=== PATIENT | female | born 1960 | race Caucasian/White ===

== ENCOUNTER 2017-06-01 21:38 | Emergency (ER) | payer OTHER ==
[2017-06-01 21:49] VITALS: BP 98/59
--- NOTE | 2017-06-01 22:21 | RAD ---
INDICATION: "Jammed" right middle finger 2 days ago. The patient now has pain in the distal phalanx. TECHNIQUE: 3 views of the right middle finger were obtained. FINDINGS: The bones are normal alignment. Joint spaces appear maintained. No fracture is seen. IMPRESSION: NO EVIDENCE FOR FRACTURE, IF THE PATIENT'S SYMPTOMS PERSIST RECOMMEND FOLLOW-UP IMAGING.
--- NOTE | 2017-06-01 22:29 | UC ---
Lidia Edwards Alfonso, scribed for Adria Dover MD on 06/01/17 at 2215 . Head Injury HPI - HPI Summary HPI Summary: This patient is a 56 year old MF presenting to [facility] with a chief complaint of right middle finger injury which occurred 2 days ago. Pt reports she jammed the finger horseback riding. The CC is described as an ache. Pt rates the pain 3/10 in severity. Symptoms aggravated and alleviated by nothing. Pt already applied a splint to the finger. Pt medications reviewed this visit. - History Of Current Complaint Chief Complaint: UCUpperExtremity Stated Complaint: FINGER INJURY Time Seen by Provider: 06/01/17 21:58 Hx Obtained From: Patient Mechanism Of Injury: Right middle finger Onset/Duration: Sudden Onset, Lasting Days - 2, Still Present Severity Currently: Mild Severity Initially: Mild Pain Intensity: 3 Pain Scale Used: 0-10 Numeric Character: Other - Ache Aggravating Factor(s): Nothing Alleviating Factor(s): Nothing - Allergies/Home Medications Allergies/Adverse Reactions: Allergies Allergy/AdvReac Type Severity Reaction Status Date / Time Sulfa Drugs Allergy Vomiting Verified 06/01/17 21:49 Home Medications: Home Medications NK [No Home Medications Reported] 06/01/17 [History Confirmed 06/01/17] PMH/Surg Hx/FS Hx/Imm Hx - Surgical History Surgical History: Yes Surgery Procedure, Year, and Place: . vein stripping - Family History Known Family History: Positive: Cardiac Disease - father in 50s - Social History Alcohol Use: Weekly Alcohol Amount: A couple times weekly Substance Use Type: None Smoking Status (MU): Never Smoked Tobacco Have You Smoked in the Last Year: No Review of Systems Constitutional: Other - Negative fever Musculoskeletal: Other: - Positive right middle finger pain and injury All Other Systems Reviewed And Are Negative: Yes Physical Exam Triage Information Reviewed: Yes Appearance: Well-Appearing, No Pain Distress Vital Signs: Initial Vital Signs Temp 98.7 F 06/01/17 21:45 Pulse 53 06/01/17 21:45 Resp 16 06/01/17 21:45 BP 98/59 06/01/17 21:45 Pulse Ox 100 06/01/17 21:45 Vital Signs Reviewed: Yes Eyes: Positive: Other: - EOMI and STEVEN ENT: Positive: Normal ENT inspection Neck: Positive: Supple, Nontender Respiratory: Positive: Chest non-tender, Normal breath sounds Cardiovascular: Positive: RRR Abdomen Description: Positive: Nontender, Soft Bowel Sounds: Positive: Present Musculoskeletal: Positive: Strength Intact, ROM Intact Neurological: Positive: Alert Psychological: Positive: Age Appropriate Behavior Skin: Positive: Other - Ecchymosis at the right PIP. Procedures - Splinting Location: Right middle figner Pre-Made Type: alumafoam Splint: Middle finger by MD Diagnostics - Radiology Finger X-Ray Radiology Interpretation Completed By: Radiologist - NO EVIDENCE FOR FRACTURE, IF THE PATIENT'S SYMPTOMS PERSIST RECOMMEND FOLLOW-UP IMAGING. Head Injury Course/Dx - Course Course Of Treatment: X-RAY RESULTS DISCUSSED WITH PATIENT. ALUMAFOAM SLPINT PLACED. - Differential Dx/Diagnosis Provider Diagnoses: RT MIDDLE FINGER JAM INJURY Discharge - Discharge Plan Condition: Stable Disposition: HOME Patient Education Materials: Jammed Finger (ED) Referrals: Quintin Bustos MD [Primary Care Provider] - Additional Instructions: FOLLOW UP WITH ORTHOPEDICS IF THE FINGER IS NOT COMPLETELY IMPROVED. RETURN TO THE EMERGENCY DEPARTMENT FOR ANY WORSENING OF YOUR CONDITION OR QUESTIONS OR CONCERNS. The documentation as recorded by the Lidia hoang Alfonso accurately reflects the service I personally performed and the decisions made by me, Adria Dover MD.
== END 2017-06-01 22:31 | disposition home or self-care (01) ==
LOC: UCEAST 21:38
DX: S69.91XA Unspecified injury of right wrist, hand and finger(s), initial encounter (principal); W22.8XXA Striking against or struck by other objects, initial encounter; Y93.52 Activity, horseback riding; Y92.9 Unspecified place or not applicable; Y99.9 Unspecified external cause status
CPT/HCPCS: 73140; 99212; G0463

== ENCOUNTER 2018-12-18 12:32 | Emergency (ER) | payer BC ==
--- NOTE | 2018-12-18 13:25 | ED ---
Head Injury - HPI Summary HPI Summary: Patient is a 58 y/o F presenting to ED with complaints of head injury. She states that she received a "glancing" kick to the right side of her face by a horse at 1225. Patient states that she was walking her horse when the horse became excited, kicked its feet up, and struck her. Patient was knocked to the ground, denies LOC, chest pain, back pain. She notes that she was able to walk the horse back to the house and have take her to ED. The horse did not have any horse shoes on. Patient notes that she takes ASA occasionally. On triage, pain is rated 5/10, nothing is noted to aggravate/alleviate Sx. Home medications and allergies are reviewed. - History Of Current Complaint Chief Complaint: EDHeadInjury Stated Complaint: KICKED IN HEAD BY HORSE Time Seen by Provider: 12/18/18 12:57 Hx Obtained From: Patient Hx Last Menstrual Period: 98.7 Mechanism Of Injury: Direct Blow - horse kick Onset/Duration: Started Minutes Ago - 1225 today, Still Present Onset of Pain: Prior to Arrival Severity Currently: Moderate - 5/10 Pain Intensity: 5 Pain Scale Used: 0-10 Numeric - 5/10 Location of Head Injury: Other: - right side of face Location: Discrete At: - right side of face Aggravating Factor(s): Other: - nothing Alleviating Factor(s): Other: - nothing Associated Signs And Symptoms: Other: - no LOC, no back pain, no chest pain - Allergies/Home Medications Allergies/Adverse Reactions: Allergies Allergy/AdvReac Type Severity Reaction Status Date / Time Sulfa (Sulfonamide Allergy Vomiting Verified 12/18/18 12:42 Antibiotics) PMH/Surg Hx/FS Hx/Imm Hx Endocrine/Hematology History: Denies: Hx Diabetes, Hx Thyroid Disease Cardiovascular History: Denies: Hx Hypertension Respiratory History: Denies: Hx Asthma, Hx Chronic Obstructive Pulmonary Disease (COPD) GI History: Denies: Hx Ulcer Musculoskeletal History: Denies: Hx Osteoporosis - Cancer History Hx Chemotherapy: No Hx Radiation Therapy: No - Surgical History Surgery Procedure, Year, and Place: . vein stripping Infectious Disease History: No Infectious Disease History: Denies: Hx Hepatitis, Hx Human Immunodeficiency Virus (HIV), Traveled Outside the [place] in Last 30 Days - Family History Known Family History: Positive: Cardiac Disease - father in 50s, Other - pt denies family hx of pulmonary or renal disease. - Social History Alcohol Use: Occasionally Alcohol Amount: A couple times weekly Substance Use Type: Reports: None Smoking Status (MU): Never Smoked Tobacco Have You Smoked in the Last Year: No Review of Systems Negative: Chest Pain Musculoskeletal: Other - NEGATIVE - BACK PAIN Neurological: Other - POSITIVE - HEAD INJURY Negative: Syncope - NO LOC All Other Systems Reviewed And Are Negative: Yes Physical Exam - Summary Physical Exam Summary: Appearance: Well appearing, no pain distress Skin: warm, swelling rt face. ecchymosis to right maxillofacial area Head/face: normal Eyes: EOMI, STEVEN ENT: normal Neck: supple, non-tender Respiratory: CTA, breath sounds present Cardiovascular: RRR, pulses symmetrical Abdomen: non-tender, soft Musculoskeletal: normal, strength/ROM intact Neuro: normal, sensory motor intact, A&Ox3 Triage Information Reviewed: Yes Vital Signs On Initial Exam: Initial Vitals Temp Pulse Resp BP Pulse Ox 98.6 F 61 14 119/97 97 12/18/18 12:37 12/18/18 12:37 12/18/18 12:37 12/18/18 12:37 12/18/18 12:37 Vital Signs Reviewed: Yes Diagnostics - Vital Signs Vital Signs Temp Pulse Resp BP Pulse Ox 12/18/18 13:01 75 98 12/18/18 13:00 71 123/85 99 12/18/18 12:37 98.6 F 61 14 119/97 97 - Laboratory Lab Statement: Any lab studies that have been ordered have been reviewed, and results considered in the medical decision making process. - CT brain ct CT Interpretation Completed By: Radiologist Summary of CT Findings: BRAIN CT IMPRESSION: NO ACUTE INTRACRANIAL PATHOLOGY. THIS REPORT WAS REVIEWED BY ED PHYSICIAN. CERVICAL SPINE CT CT Interpretation Completed By: Radiologist Summary of CT Findings: CERVICAL SPINE CT IMPRESSION: NO ACUTE OSSEOUS INJURY TO THE CERVICAL SPINE. MILD DEGENERATIVE DISC DISEASE AND OSTEOARTHRITIS DESCRIBED ABOVE. HETEROGENEOUS THYROID SUGGESTIVE OF DIFFUSE THYROID DISEASE. THIS REPORT WAS REVIEWED BY ED PHYSICIAN. CT MAXILLOFACIAL CT Interpretation Completed By: Radiologist Summary of CT Findings: CT MAXILLOFACIAL IMPRESSION: SOFT TISSUE SWELLING. NO FACIAL FRACTURE. THIS REPORT WAS REVIEWED BY ED PHYSICIAN. Re-Evaluation - Re-Evaluation First Eval Re-Evaluation Time: 14:17 Comment: Results of scans were discussed with patient, she will be discharged to home and follow up with PCP. Patient is agreeable with this plan. Head Injury Course/Dx Course Of Treatment: Patient is a 58 y/o F presenting to ED with complaints of head injury. She states that she received a "glancing" kick to the right side of her face by a horse at 1225. Patient states that she was walking her horse when the horse became excited, kicked its feet up, and struck her. Patient was knocked to the ground, denies LOC, chest pain, back pain. She notes that she was able to walk the horse back to the house and have take her to ED. The horse did not have any horse shoes on. Patient notes that she takes ASA occasionally. On physical exam, ecchymosis to right maxillofacial area is noted. CT MAXILLOFACIAL IMPRESSION: SOFT TISSUE SWELLING. NO FACIAL FRACTURE. CERVICAL SPINE CT IMPRESSION: NO ACUTE OSSEOUS INJURY TO THE CERVICAL SPINE. MILD DEGENERATIVE DISC DISEASE AND OSTEOARTHRITIS DESCRIBED ABOVE. HETEROGENEOUS THYROID SUGGESTIVE OF DIFFUSE THYROID DISEASE. BRAIN CT IMPRESSION: NO ACUTE INTRACRANIAL PATHOLOGY. Results of scans were discussed with patient, she will be discharged to home and follow up with PCP. Patient is agreeable with this plan. - Diagnoses Differential Diagnosis/HQI/PQRI: Contusion, Intracranial Bleed, Zygomatic Fracture Provider Diagnoses: Head injury, Facial contusion Discharge - Sign-Out/Discharge Documenting (check all that apply): Patient Departure - DISCHARGE Patient Received Moderate/Deep Sedation with Procedure: No - NO PROCEDURES DONE - Discharge Plan Condition: Stable Disposition: HOME Patient Education Materials: Head Injury (ED), Facial Contusion (ED) Referrals: Quintin Bustos MD [Primary Care Provider] - 3 Days Additional Instructions: RETURN TO ED WITH ANY NEW OR WORSENING SYMPTOMS. FOLLOW UP WITH PRIMARY CARE PHYSICIAN WITHIN THREE DAYS - Billing Disposition and Condition Condition: STABLE Disposition: Home - Attestation Statements Document Initiated by Cayden: Yes Documenting Scribe: HOLLY BROOKS Provider For Whom Cayden is Documenting (Include Credential): NIESHA BATRES MD Scribe Attestation: HOLLY Edwards scribed for NIESHA BATRES MD on 12/18/18 at 1447. Scribe Documentation Reviewed: Yes Provider Attestation: The documentation as recorded by the HOLLY hoang accurately reflects the service I personally performed and the decisions made by me, NIESHA BATRES MD Status of Scribe Document: Viewed
[2018-12-18 14:52] VITALS: BP 131/85
== END 2018-12-18 14:51 | disposition home or self-care (01) ==
LOC: ED 12:32
DX: S00.83XA Contusion of other part of head, initial encounter (principal); S09.90XA Unspecified injury of head, initial encounter; W55.12XA Struck by horse, initial encounter; Y92.9 Unspecified place or not applicable; Z88.2 Allergy status to sulfonamides
CPT/HCPCS: 70450; 70486; 72125; 99282